=== PATIENT | male | born 1960 | race Caucasian/White ===

== ENCOUNTER → 2020-10-06 | Outpatient (CLI) | payer BC ==
[~2020-10-06] MED LIST: ATENOLOL25 MG PO; CITALOPRAM HBR40 MG PO; LOSARTAN POTAS100 MG PO; NEXIUM40 MG PO
== END ==
LOC: US 07:33
PROVIDERS: ATTEND Family Medicine
DX: N28.1 Cyst of kidney, acquired (principal); K76.0 Fatty (change of) liver, not elsewhere classified
CPT/HCPCS: 76700

== ENCOUNTER → 2021-07-22 | Outpatient (CLI) | payer BC | LOC: RAD 10:28 | PROVIDERS: ATTEND Family Medicine | DX: J40 Bronchitis, not specified as acute or chronic (principal) | CPT/HCPCS: 71046 ==